=== PATIENT | male | born 1970 | race Caucasian/White ===

== ENCOUNTER 2021-05-30 10:33 | Emergency (ER) | payer OTHER, SELFPAY ==
[2021-05-30] VITALS (38 sets, daily range): BP systolic 115–150; BP diastolic 71–98; PULSE 64–81; RESP 11–26; TEMP 36.5; O2SAT 92–100
--- NOTE | ~2021-05-30 | XR_ITS ---
EXAMINATION: XR chest 2V DATE: 05/30/2021 10:53 INDICATION: Shortness of breath. TECHNIQUE: Frontal and lateral views of the chest were obtained on 3 radiographs. COMPARISON: Chest 2 views 04/28/2019 FINDINGS: The chest demonstrates clear lungs without pneumonia, pleural effusion, or pneumothorax. Th e heart size is normal. There are changes of disc replacements in cervical spine. IMPRESSION: 1. No acute cardiopulmonary disease. Reviewed, dictated and finalized at location A.
--- NOTE | ~2021-05-30 | CT_ITS ---
EXAMINATION: CTA chest PE protocol DATE: 05/30/2021 14:35 INDICATION: Shortness of breath. TECHNIQUE: Computed tomography angiography (CTA) of the chest was performed with 100 mL Omnipaque-350 intravenous contrast timed to evaluate the pulmonary arteries. Coronal maximum intensity projection 3D-reconstructions were created by the technologist. Automated exposure control and iterative reconst ruction technique were employed. The dose-length product was 903.07 mGy-cm. COMPARISON: CT abdomen and pelvis 10/06/2010 FINDINGS: There is no pneumonia or pleural effusion. The heart size is normal. No pericardial effusio n. There is no pulmonary embolus. There is diffuse hepatic steatosis. There is mild thoracic spondylo sis. There are changes of disc replacements in cervical spine. There is a benign bone island in T12. IMPRESSION: 1. No pulmonary embolus. Reviewed, dictated and finalized at location A. IMPRESSION: 1. No pulmonary embolus.
--- NOTE | 2021-05-30 10:38 | ECG_ITS ---
Measurements Intervals [place] Rate: 67 P: 50 [place]: 234 QRS: -30 QRSD: 94 T: 125 QT: 414 QTc: 440 Interpretive Statements SINUS RHYTHM WITH FIRST DEGREE AV BLOCK BORDERLINE T WAVE ABNORMALITY- ANTEROLAT/HIGH LAT LEADS BASELINE ARTIFACT- I, II, AVR, AVL, V1 ABNORMAL ECG Electronically Signed On 05-30-2021 12:28:58 CDT by Michael Brady D.O.
[2021-05-30 10:57] LABS: Basophils Percent Auto 0.1 % (0.2-1.2); Eosinophils Percent Auto 0.2 % (0-4.4); Hematocrit 42.6 % (42.0-52.0); Hemoglobin 14.2 g/dL (14.0-18.0); Immature Granulocyte Absolute 0.09 K/mm3 (0.00-0.031); Immature Granulocyte Percent A 0.9 % (0-0.5); Lymphocytes Absolute Auto 1.49 K/mm3 (0.9-3.2); Lymphocytes Percent Auto 14.5 % (18.3-44.2); Mean Corpuscular HGB Conc 33.3 g/dl (32-36); Mean Corpuscular Hemoglobin 28.7 pg (26-34); Mean Corpuscular Volume 86.2 fl (80-100); Monocytes Absolute Auto 0.8 K/mm3 (0.1-0.6); Monocytes Percent Auto 7.5 % (2.6-8.5); Neutrophils Absolute Auto 7.9 K/mm3 (1.3-6.7); Neutrophils Percent Auto 76.8 % (45.5-73.1); Platelet Count Result 166 k/mm3 (150-375); Red Blood Count 4.94 M/mm3 (4.6-6.20); Red Cell Distribution Width 12.7 % (11.5-14.5); White Blood Count 10.3 K/mm3 (4.5-10.0)
[2021-05-30 11:20] LABS: Anion Gap 9 mmol/L (8-16); Blood Urea Nitrogen 11 mg/dL (9-20); Calcium 10.1 mg/dL (8.4-10.2); Carbon Dioxide 25 mmol/L (22-30); Chloride 109 mmol/L (98-107); Estimated CRCL calculation 79 ml/min; Estimated Glomerular Filt Rate > 60; Glucose 108 mg/dL (65-110); Potassium 3.7 mmol/L (3.4-5.0); Sodium 143 mmol/L (137-145)
--- NOTE | 2021-05-30 12:37 | PC.NURSE ---
Pt refusing IV until absolutely necessary. Respiratory at bedside for ABGs
[2021-05-30 12:40] LABS: Alanine Aminotransferase 62 U/L (4-50); Albumin Level 4.8 g/dL (3.5-5.1); Alkaline Phosphatase 50 U/L (38-126); Aspartate Amino Transferase 46 U/L (17-59); Bilirubin,Total 0.4 mg/dL (0.2-1.3)
[2021-05-30 12:45] LABS: Alveolar/Arterial O2 Gradient 10.6 mmHg; Base Excess ABG 0.3 mEq/l (+/-2.0); Fractional Inspired Oxygen 21 %; HCO3 ABG 23.8 mEq/l (22.0-26.0); Oxygen Content ABG 19.5 %vol (16.0-22.0); Oxygen Saturation ABG 97.7 % (95.0-100.0); Oxyhemoglobin 96.8 % THb (90.0-100.0); PO2 ABG 97.2 mmHg (80.0-100.0); PO2 FiO2 Ratio Arterial Blood 4.63 %; Total Hemoglobin 14.3 g/dL (12.0-18.0)
[2021-05-30 12:46] LABS: Device ROOM AIR; Modified Allen's Test Pass; Site Drawn RIGHT RADIAL
--- NOTE | 2021-05-30 15:12 | ED.SOB ---
HPI - SOB/Dyspnea General Chief Complaint: Shortness of Breath/Dyspnea Stated Complaint: SOB Time Seen by Provider: 05/30/21 12:18 Source: patient Mode of arrival: ambulatory Limitations: no limitations History of Present Illness HPI Narrative: Patient is 51 years old white male, status post lithotripsy yesterday. He hours after being at home, patient tried to get up to go to the bathroom and felt his heart was racing, and unable to breathe. The above symptoms occurred at least 5 times yesterday only with activity. Patient had no symptoms as long as sitting or laying down. Currently patient denying any fever, chills, nausea, vomiting, chest pain, shortness of breath, back pain or abdominal pain. Related Data Home Medications Medication Instructions Recorded Confirmed gabapentin 300 mg capsule 300 mg PO TID 09/30/20 Allergies Allergy/AdvReac Type Severity Reaction Status Date / Time No Known Allergies Allergy Mild Verified 05/30/21 12:31 Review of Systems Review of Systems: CONSTITUTIONAL: Denies fever, chills, or sweats. EYES: Denies visual changes, redness, or discharge. ENT: Denies rhinorrhea, congestion, sore throat, or otalgia. CARDIOVASCULAR: Denies chest pain, palpitations, or edema. RESPIRATORY: Dyspnea GASTROINTESTINAL: Denies abdominal pain, nausea, vomiting, or diarrhea. GENITOURINARY: Denies dysuria or hematuria. SKIN: Denies rash or itching. MUSCULOSKELETAL: Denies back pain, joint pain, or myalgia. NEUROLOGIC: Denies headache, numbness, or weakness. PSYCHIATRIC: Denies anxiety or depression. [facility] Past Medical History Medical History Essential hypertension H/O asbestos exposure Hypertension Maxillary sinusitis Mixed hyperlipidemia Neck pain Paresthesia and pain of extremity Wellness examination Surgical History Surgical History S/P cervical disc replacement Family History Family History Mother Patient's mother is in good health Father Patient's father is in good health Sibling Patient's sister is in good health Patient's brother is in good health Social History Social History Smoking status: Never smoker Alcohol intake: never Substance use: never Gender identity (if verbalized by the patient): Male Exam Narrative: General appearance: Well-developed, well-nourished Skin: Normal color Head: Normocephalic, nontraumatic Eyes: Clear conjunctiva ENT: Oropharynx normal, ears normal, nose normal Neck: Supple, nontender Chest and respiratory: Airway patent, no respiratory distress, no accessory muscle use Heart: Regular rate/rhythm Abdomen: Soft, nontender, no organomegaly, quiet bowel sounds Vascular: Normal peripheral pulses, normal capillary refill. Musculoskeletal: Normal range of motion, nontender back Neurologic: Alert and oriented ?3, [employer] is normal as tested, no gross motor deficit Course Course Emergency Course: Stable Consultations Consultation #1: DR GARCES. Follow-up as outpatient Date: 05/30/21 Time: 15:48 Vital Signs Vital signs: Vital Signs Temperature 36.5 C 05/30/21 10:35 Pulse Rate 69 05/30/21 10:35 Respiratory Rate 18 05/30/21 10:35 Blood Pressure 150/90 H 05/30/21 10:35 Pulse Oximetry 100 05/30/21 10:35 Temperature 36.5 C 05/30/21 10:35 Pulse Rate 81 05/30/21 15:02 Respiratory Rate 19 05/30/21 15:02 Blood Pressure 129/84 05/30/21 15:02 Pulse Oximetry 95 05/30/21 15:02 MDM - SOB/Dyspnea MDM Narrative Medical decision making
--- NOTE | 2021-05-30 16:26 | PC.NURSE ---
1530: Pt and nurse went on walk around unit with SpO2 monitor. Baseline: 94% HR 80 Lap 1: 97% HR 91 Lap 2: 92% HR 108 Dr Awan aware. Pt increasing speed with each lap. Recovered quickly to 97% and HR 84
== END 2021-05-30 16:28 | disposition home or self-care (01) ==
PROVIDERS: Emergency Medicine; Emergency Provider Emergency Medicine; PCP Family Medicine
DX: R00.2 Palpitations (principal); R06.00 Dyspnea, unspecified; I10 Essential (primary) hypertension; E78.2 Mixed hyperlipidemia; Z98.890 Other specified postprocedural states; I44.0 Atrioventricular block, first degree; R94.31 Abnormal electrocardiogram [ECG] [EKG]
CPT/HCPCS: 36415; 36600; 71046; 71275; 80048; 80076; 82805; 85025; 93005; 99284; Q9967

== ENCOUNTER 2021-09-18 07:56 | Outpatient (CLI) | payer OTHER, SELFPAY ==
--- NOTE | 2021-10-02 12:02 | WPDHOMESLEEP ---
Sleep Study - Home Unattended Date of Study: 09/18/21 <Andreia Ayoub, DO - Last Filed: 10/02/21 12:17> Ordering Provider: FLORES Medrano <Andreia Ayoub, DO - Last Filed: 10/02/21 12:17> Interpreting Provider: Andreia Ayoub DO <Andreia Ayoub, DO - Last Filed: 10/02/21 12:17> Home Sleep Study Type: Apnea Link Air <Andreia Ayoub, DO - Last Filed: 10/02/21 12:17> Height: 1.85 m <Andreia Ayoub DO - Last Filed: 10/02/21 12:17> Weight: 99.79 kg <Andreia Ayoub DO - Last Filed: 10/02/21 12:17> Body Mass Index: 29.0 <Andreia Ayoub DO - Last Filed: 10/02/21 12:17> Neck Circumference (inches): 18.5 <Andreia Ayoub DO - Last Filed: 10/02/21 12:17> [place]: 1 <Andreia Ayoub DO - Last Filed: 10/02/21 12:17> Reason for Sleep Study Patient has known NERI on CPAP. Last sleep study was 15 years ago. He has been ordering supplies online. <Andreia Ayoub DO - Last Filed: 10/02/21 12:17> Sleep History The patient is a 51-year-old male with hypertension, hypertrophic cardiomyopathy, hyperlipidemia that had a home sleep test ordered by his PCP to re-qualify for PAP Therapy. the patient states that he currently snores and his is having difficulty sleeping. He denies awakening from sleep short of breath. He denies awakening at night with heartburn, belching or cough. He constantly snores loud enough that others complain. He denies having trouble sleeping when he has a cold. He denies waking up gasping for air throughout the night. He denies having breathing problems at night observed by others. He denies sweating excessively at night. He denies heart palpitations or irregular heartbeats throughout the night. He denies falling asleep during the day and while driving. He denies sleep paralysis, cataplexy and hypnagogic / hypnopompic hallucinations. He denies having trouble at work due to sleepiness. He denies having nightmares. He occasionally has thoughts racing through his mind. He denies feeling sad, depressed or anxious. He denies noticing parts of his body jerk and kicking throughout the night. He denies having crawling and aching feelings in his legs as well as leg pain during the night. He occasionally grinds his teeth during sleep but never awakens with morning jaw pain. He is constantly bothered by pain during the day and is frequently awakened by pain during the night. He occasionally wakes up feeling stiff in the morning with sore and achy muscles. He goes to bed at 9:00 p.m. on both weekdays and weekends. It takes him 15-20 minutes to fall asleep. He wakes up 2-3 times per night to urinate. He can fall back asleep within 10-15 minutes. He awakens at 6:30 a.m. on both weekdays and weekends. He typically gets between 8 9 hours of sleep per night. He does not stay in bed after awakening in the morning. He currently lives with his . He does not consume any caffeinated beverages within 2 hours of bedtime. He does not engage in physical exercise before bedtime. He will watch television before falling asleep. He does not take naps in the afternoon or the evening. He does not consume any caffeinated beverages. He denies tobacco, alcohol and recreational drug use. <Andreia Ayoub DO - Last Filed: 10/02/21 12:17> [facility] Past Medical History Medical History: Medical History Essential hypertension H/O asbestos exposure Hypertension Hypertrophic cardiomyopathy Maxillary sinusitis Mixed hyperlipidemia Neck pain Obesity Paresthesia and pain of extremity Wellness examination <Andreia Ayoub DO - Last Filed: 10/02/21 12:17> Surgical History Surgical History: Surgical History S/P cervical disc replacement <Andreia Ayoub DO - Last Filed: 10/02/21
[2021-10-02 12:16] VITALS: BMI 29.0
== END 2021-09-21 09:17 | disposition home or self-care (01) ==
LOC: ANHCSM 07:56
PROVIDERS: PCP Family Medicine; Visit Provider Nurse Practitioner Family
DX: G47.30 Sleep apnea, unspecified (principal); G47.33 Obstructive sleep apnea (adult) (pediatric)
CPT/HCPCS: 95806